=== PATIENT | female | born 1950 | race Caucasian/White ===

== ENCOUNTER → 2017-12-11 | Outpatient (CLI) | payer MEDICARE ==
--- NOTE | 2017-12-12 10:48 | MM ---
Reason for exam: screening (asymptomatic). History: Patient is postmenopausal and is nulliparous. Took hormonal contraceptives for 5 years. Took estrogen for 1 year. Physical Findings: A clinical breast exam by your physician is recommended on an annual basis and results should be correlated with mammographic findings. MG 3D Screening Mammo W/Cad Bilateral CC and MLO view(s) were taken. The breast tissue is heterogeneously dense. This may lower the sensitivity of mammography. Finding: There are typically benign dystrophic, round, linear calcifications in both breasts. There is a small nodularity bilaterally axilla presumed benign lymph node. There is no discrete abnormality. ASSESSMENT: Benign, BI-RAD 2 RECOMMENDATION: Routine screening mammogram of both breasts in 1 year.
== END | disposition home or self-care (01) ==
LOC: RADMAMWWP 07:12
PROVIDERS: ATTEND Family Medicine
DX: Z12.31 Encounter for screening mammogram for malignant neoplasm of breast (principal)
CPT/HCPCS: 77063; 77067

== ENCOUNTER → 2018-01-26 | Outpatient (CLI) | payer MEDICARE ==
--- NOTE | 2018-01-26 14:23 | CT ---
EXAMINATION TYPE: CT brain wo con DATE OF EXAM: 01/26/2018 HISTORY: Leg numbness and pain CT DLP: 1162.8 mGycm. Automated Exposure Control for Dose Reduction was Utilized. TECHNIQUE: CT scan of the head is performed without contrast. COMPARISON: None. FINDINGS: There is no acute intracranial hemorrhage or midline shift identified. There is diffuse v entricular and sulcal prominence consistent with diffuse age-related cerebral atrophy. There is low- attenuation in the periventricular white matter consistent with chronic small vessel ischemic change. The globes are intact and the visualized sinuses are clear. Calcified plaque distal internal horner tid and left vertebral arteries is present. IMPRESSION: No acute intracranial hemorrhage or midline shift. There is mild diffuse age-related ce rebral atrophy and chronic small vessel ischemic change noted.
== END | disposition home or self-care (01) ==
LOC: RADCTMAIN 12:44
PROVIDERS: ATTEND Family Medicine
DX: G31.9 Degenerative disease of nervous system, unspecified (principal); I67.82 Cerebral ischemia
CPT/HCPCS: 70450

== ENCOUNTER 2018-11-21 07:30 | Emergency (ER) | payer MEDICARE ==
[2018-11-21 07:40] VITALS: RESP 18
[2018-11-21] MEDS ORDERED: KETOROLAC 60 MG/2 ML VIAL IM STA (08:16)
--- NOTE | 2018-11-21 08:25 | ED ---
General Adult HPI - General Chief complaint: Extremity Problem,Nontraumatic Stated complaint: Lt knee injury Time Seen by Provider: 11/21/18 07:40 Source: patient, RN notes reviewed Mode of arrival: ambulatory Limitations: no limitations - History of Present Illness Initial comments: This is a 68-year-old female who comes into the emergency department complaining of medial left knee pain. Patient states it started week ago. Patient states that she wants her primary care doctor in the next rate and did not see anything. Patient states it seemed to be getting a little bit better that yesterday it got much worse. Patient states standing on it increases the pain. Patient states she just got a new job where she has to walk around a lot and she wanted to be evaluated. Patient denies any injury that she knows of. Patient states there is no swelling there is no redness. Patient denies any hip pain or ankle pain. - Related Data Allergies Allergy/AdvReac Type Severity Reaction Status Date / Time No Known Allergies Allergy Verified 11/21/18 07:40 Review of Systems ROS Statement: Those systems with pertinent positive or pertinent negative responses have been documented in the HPI. ROS Other: All systems not noted in ROS Statement are negative. Past Medical History Past Medical History: Diabetes Mellitus, Hypertension History of Any Multi-Drug Resistant Organisms: None Reported Past Surgical History: Appendectomy, Breast Surgery, Cholecystectomy, Hysterectomy, Tonsillectomy Past Psychological History: No Psychological Hx Reported Smoking Status: Never smoker Past Alcohol Use History: Occasional Past Drug Use History: None Reported General Exam - General Exam Comments Initial Comments: GENERAL Patient is well-developed and well-nourished. Patient is in mild distress. EYES Patient's pupils are equal and round. Extraocular motion is intact SKIN Unremarkable NEURO The patient is alert and oriented 3 PYSCH Patient has normal interpersonal interactions. MUSCULOSKELETAL Left knee is slightly tender to palpation of the medial aspect. Patient also has some pain when stressing the lateral collateral. The knee has no effusion. Limitations: no limitations Course Vital Signs 11/21/18 07:37 Temperature 98.2 F Pulse Rate 58 L Respiratory 18 Rate Blood Pressure 139/83 O2 Sat by Pulse 99 Oximetry Disposition Clinical Impression: Knee sprain Disposition: HOME SELF-CARE Condition: Good Instructions (If sedation given, give patient instructions): Knee Sprain (ED), Knee Immobilizer (ED) Additional Instructions: Patient should take Motrin 600 mg every 6 hours. Is patient prescribed a controlled substance at d/c from ED?: No Referrals: Alan Torrez MD [Primary Care Provider] - 1-2 days Time of Disposition: 08:25
[2018-11-21 09:08] VITALS: BP 142/73; PULSE 64; TEMP 98.6
== END 2018-11-21 09:10 | disposition home or self-care (01) ==
LOC: EC 07:30
DX: S83.92XA Sprain of unspecified site of left knee, initial encounter (principal); X50.9XXA Other and unspecified overexertion or strenuous movements or postures, initial encounter; Y93.01 Activity, walking, marching and hiking; Y92.69 Other specified industrial and construction area as the place of occurrence of the external cause
CPT/HCPCS: 99283; 96372; L1830 ×2; J1885

== ENCOUNTER → 2021-07-23 | Outpatient (CLI) | payer MEDICARE, OTHER ==
[2021-07-23 08:41] VITALS: BP 145/81; PULSE 85; RESP 18; TEMP 97.9
--- NOTE | 2021-07-23 09:05 | P.PAINCN ---
History of Present Illness - Reason for Consult Consult date: 07/23/21 - History of Present Illness This is an initial consultation of visits 4-70 years old female with chronic history of severe neck pain with radiation to the right upper extremity, started 4 months ago patient denies any initiating event and she reported that the intensity of the pain increased over time, constant debilitating, interfere with the quality of life, some weakness in her right upper extremity, she denies any sensory deficit, she denies any change in the bowel movement or urination, but that the pains that started in the cervical area radiated towards the right shoulder blade and towards the elbow on the right fingers, associated with numbness and tingling sensation, patient is doing homicide and stretches but she is not able to do any physical therapy secondary to intensity of the pain, patient's currently on Motrin with minimal benefit and she had the oral steroids in the past with minimal benefit . Past Medical History Past Medical History: Diabetes Mellitus, Hypertension, Neurologic Disorder Additional Past Medical History / Comment(s): Menieres disease. per pt rt side neck pain-bone spurs on neck C4-6 shoulder and elbow pain, with numbness in hands History of Any Multi-Drug Resistant Organisms: None Reported Past Surgical History: Appendectomy, Breast Surgery, Cholecystectomy, Hysterectomy, Tonsillectomy Additional Past Surgical History / Comment(s): lt breast biopsy "negative" Past Anesthesia/Blood Transfusion Reactions: No Reported Reaction Past Psychological History: No Psychological Hx Reported Smoking Status: Never smoker Past Alcohol Use History: Occasional Past Drug Use History: None Reported Medications and Allergies Home Medications Medication Instructions Recorded Confirmed Type Losartan Potassium 50 mg PO DAILY 11/21/18 07/23/21 History metFORMIN HCL [Glucophage] 1,000 mg PO BID 11/21/18 07/23/21 History Ibuprofen [Motrin] 600 mg PO DAILY PRN 07/16/21 07/23/21 History Cyclobenzaprine [Flexeril] 5 mg PO TID PRN 30 Days #60 tablet 07/23/21 Rx Allergies Allergy/AdvReac Type Severity Reaction Status Date / Time No Known Allergies Allergy Verified 07/23/21 08:41 Physical Exam Vitals: Vital Signs Temp Pulse Resp BP 07/23/21 08:32 97.9 F 85 18 145/81 Physical Examinations : -Constitutiona : Cooperative , not in acute distress . -HEENT : nech : supple , no Lymphadenopathy , normal thyroid size . : eyes : no ptosis , no icterus, no photophobia . - neurologic : Cranial nerve II to XII intact , no focal neurological deffecit . -psychatric : alert , oriented X 3 , appropriate affect , intact judgment and insight . -Lymphatic : no Lymphadenopathy . - musculoskeltal : Cervical Spine motor stregnth in the deltoid and biceps, normal right side , normal Left side motor stregnth biceps and the wrist extensors normal right side ,normal left side . motor stregnth in the triceps muscle . normal Right side , normal Left side deep tendon reflexes normal at the biceps , normal at Brachioradialis , normal at triceps. cervical facet loading test: Positive right Spurling test= positive Right. Neck distraction test= positive Right . Yashira sign= positive right, . Total trigger point identified in the right side cervical paraspinal muscles trapezius muscles, Lumber spine moter stegnth lower extremities ,thigh and legs 5/5 Right side , 5/5 Left side Results Comments: Andreina of the cervical spine= C4 5 and C5 6 foraminal stenosis and spinal stenosis and multilevel cervical degenerative disc disease Assessment and Plan Plan: Assessment and plan =1-cervical radiculopathy . 2-cervical spinal stenosis . 3-cervical degenerative disc disease . 4-myofascial pain syndrome cervical paraspinal muscles . She could benefit from Celexa and Flexeril 5 mg twice a day when necessary benefit from cervical epidural steroid injection at C6 7 level with a right paramedian approach, and the same time she can benefit from trigger point injections cervical paraspinal muscles Time with Patient: Greater than 30 PQRS Measure Charge Sheet Measure #130: Documentation of Current Meds in Medical Chart: Patient's medications documented in chart Measure #226: Tobacco Use: Screen & Cessation Intervention: Pt not a tobacco user Measure #111: Pneumonia Vaccination: Pneumococcal vaccine administered or previously received Measure #47: Advance Care Plan: Advance care planning discussed & documented, pt chose/unable to give Measure #412: Opioid Treatment Agreement: No documentation of signed opioid treatment agreement Measure #408: Opioid Therapy Follow-up Evaluation: Patient had NO f/u eval minimum every 3 months during opioid therapy Measure #317: Preventitive Care & Scrn High Bld Press & F/U: Pre-hypertensive or hypertensive BP documented, pt will f/u with PCP Measure #128: Body Mass Index (BMI) Screening & Follow-up: BMI documented ABOVE normal parameters - f/u documented Measure #131: Pain Assessment & Follow-up: Pain positive & plan documented, Follow-up scheduled Measure #431: Unhealthy Alcohol Use Preventative Care & Scrn: Patient not identified as an unhealthy alcohol user Mode of Arrival: Ambulatory - Pain Location Right Neck Non-Pharmacological Interventions: Heat, Inactivity, Position/Reposition, Stretching Pharmacological Interventions: PRN Medication PQRS Narrative: Smoking Status Never smoker Blood Pressure 145/81 Pain Intensity [Right Neck] 9 Scale Used Numeric (1 - 10) Hx Alcohol Use (MH) Yes Home Medications: Ambulatory Orders Losartan Potassium 50 mg PO DAILY 11/21/18 metFORMIN HCL [Glucophage] 1,000 mg PO BID 11/21/18 Ibuprofen [Motrin] 600 mg PO DAILY PRN 07/16/21 Cyclobenzaprine [Flexeril] 5 mg PO TID PRN 30 Days #60 tablet 07/23/21
== END ==
LOC: PNWHC3 08:04
PROVIDERS: ATTEND Specialist
DX: M50.10 Cervical disc disorder with radiculopathy, unspecified cervical region (principal); M48.02 Spinal stenosis, cervical region; M79.18 Myalgia, other site; E11.9 Type 2 diabetes mellitus without complications; I10 Essential (primary) hypertension; Z79.84 Long term (current) use of oral hypoglycemic drugs; Z79.899 Other long term (current) drug therapy
CPT/HCPCS: 99211